=== PATIENT | female | born 1985 | race Hispanic/Latino ===

== ENCOUNTER 2018-06-08 05:16 | Emergency (ER) | payer OTHER ==
[~2018-06-08] VITALS: Ht 152.4 cm; Wt 79.4 kg
[~2018-06-08 05:16] MED LIST: BENTYL10 M1 PO; MOBIC15 M1 PO; NEXIUM20 M1 PO; ZOFRAN ODT4 M1 SL; [UNRECOGNIZED DRUG - OTHER]
--- NOTE | 2018-06-08 05:28 | ED GI/GU/ABDOMINAL COMPLAINT ---
See Addendum History of Present Illness General Chief Complaint: Abdominal Pain/Flank Pain Stated Complaint: SEVERE ABD PAIN 9WKS Source: patient Exam Limitations: no limitations Vital Signs & Intake/Output Vital Signs & Intake/Output Vital Signs Date Time Temp Pulse Resp B/P B/P Pulse O2 O2 Flow FiO2 Mean Ox Delivery Rate 06/08 0528 98.2 100 16 139/69 99 Room Air Allergies Coded Allergies: NO KNOWN ALLERGIES (07/12/17) Reconcile Medications Clomiphene Citrate 50 MG TABLET HEALTH SUPPLEMENT (Reported) Dicyclomine Hydrochloride (Bentyl) 10 MG CAPSULE 1 CAP PO TID PRN ABDOMINAL PAIN Esomeprazole Magnesium (Nexium) 20 MG CAPSULE.DR 1 CAP PO DAILY ACID REFLUX ( Reported) Meloxicam (Mobic) 15 MG TABLET 1 TAB PO DAILY PRN PAIN Ondansetron (Zofran Odt) 4 MG TAB.RAPDIS 1 TAB SL TID PRN NAUSEA Ondansetron (Zofran Odt) 4 MG TAB.RAPDIS 1 TAB SL TID PRN nausea Triage Note: REPORTS ABDOMINAL PAIN X 24 HRS WITH NAUSAEA AND VOMITING AND ALSO REPORTS LOOSE STOOLS. SHE IS CURRENTLY 9 WEEKS . Triage Nurses Notes Reviewed? yes ? y Is pt currently ? No Onset: Gradual Duration: day(s): Timing: recent history Quality/Severity: burning, cramping Location: epigastric Radiation: no radiation Activities at Onset: none Modifying Factors: Worsens With: palpation. Associated Symptoms: abdominal pain, nausea/vomiting HPI: 33 yo woman 9 weeks gestation, with IUP per her report, with regular OB follow up, presents with 1-2 day history of nausea and vomiting with mid epigastric burning discomfort. She notes that she has only felt intermittent nausea during her , "but this time it feels like a bug... it started last night." She notes normal stools, no fever, chills, dysuria. She has no vaginal discharge or bleeding. She is otherwise well. Past History Travel History Traveled to [place] past 21 day No Medical History Any Pertinent Medical History? see below for history Gastrointestinal: GERD Surgical History Surgical History: non-contributory Psychosocial History What is your primary language Frisian Tobacco Use: Never used Family History Hx Contributory? No Review of Systems Review of Systems Constitutional: Reports: no symptoms. EENTM: Reports: no symptoms. Respiratory: Reports: no symptoms. Cardiovascular: Reports: no symptoms. GI: Reports: no symptoms. Genitourinary: Reports: no symptoms. Musculoskeletal: Reports: no symptoms. Skin: Reports: no symptoms. Neurological/Psychological: Reports: no symptoms. Hematologic/Endocrine: Reports: no symptoms. Immunologic/Allergic: Reports: no symptoms. All Other Systems: Reviewed and Negative Physical Exam Physical Exam General Appearance: well developed/nourished, mild distress Head: atraumatic, normal appearance Eyes: Bilateral: normal appearance. Ears, Nose, Throat, Mouth: hearing grossly normal, moist mucous membrane Neck: normal inspection, supple, full range of motion Respiratory: normal breath sounds, chest non-tender, no respiratory distress, quiet respiration, lungs clear Cardiovascular: regular rate/rhythm Gastrointestinal: normal bowel sounds, soft, mild mid epigastric tenderness to palpation, no rebound. no guarding. Back: normal inspection Extremities: normal range of motion Neurologic/Psych: no motor/sensory deficits, awake, alert, oriented x 3 Skin: intact, normal color, warm/dry Comments: bedside u/s by ED MD... + heart movement, approx 150 bpm, Core Measures ACS in differential dx? No Sepsis Present: No Sepsis Focused Exam Completed? No Progress Differential Diagnosis: hyperemesis gravidarum vs viral gastro vs other. Plan of Care: Orders Procedure Date/time Status Add-on Test (ER Only) 06/08 06 Active HUMAN BETA HCG TITRE 06/08 0535 Complete URINALYSIS 06/08 05 Active LIPASE 06/08 05 Complete HUMAN BETA HCG SCREEN 06/08 05 Complete COMPREHENSIVE METABOLIC PANEL 06/08 05 Complete CBC WITHOUT DIFFERENTIAL 06/08 05 Complete AMYLASE 06/08 0520 Complete Laboratory Tests 06/08/18 0700: Urine Color Pending, Urine Clarity Pending, Urine pH Pending, Ur Specific [place] Pending, Urine Protein Pending, Urine Ketones Pending, Urine Nitrite Pending, Urine Bilirubin Pending, Urine Urobilinogen Pending, Ur Leukocyte Esterase Pending, Ur Microscopic Pending, Urine Hemoglobin Pending, Urine Glucose Pending 06/08/18 0535: Anion Gap 12, Estimated GFR > 60, BUN/Creatinine Ratio 12.0, Glucose 121 H, Calcium 9.3, Total Bilirubin 0.6, AST 20, ALT 38, Alkaline Phosphatase 66, Total Protein 6.8, Albumin 3.8, Globulin 3.0, Albumin/Globulin Ratio 1.3, Amylase 67, Lipase 77, Beta HCG, Quant 639111.0, Total Beta HCG POSITIVE, CBC w Diff NO MAN DIFF REQ, RBC 4.55, MCV 82.4, MCH 27.2, MCHC 32.9 L, RDW 13.7, MPV 9.1, Gran % 91.4 H, Lymphocytes % 5.7 L, Monocytes % 2.3, Eosinophils % 0.1, Basophils % 0.5, Absolute Granulocytes 10.8 H, Absolute Lymphocytes 0.7 L, Absolute Monocytes 0.3, Absolute Eosinophils 0, Absolute Basophils 0.1 Initial ED EKG: none Departure Departure Disposition: HOME OR SELF CARE Condition: Stable Clinical Impression Primary Impression: Abdominal pain Secondary Impressions: Nausea and vomiting, Referrals: Edmar Laorse MD (PCP/Family) Departure Forms: Customer Survey General Discharge Information Prescriptions: Current Visit Scripts Ondansetron (Zofran Odt) 1 TAB SL TID PRN nausea #10 TAB Comments 06/08/18, 7:15am... pt feeling better... labs benign... await u/a... pt signed out to dr. craven pending urinarlysis... rx for zofran sent to pharmacy. Ondansetron (Zofran Odt) 1 TAB SL TID PRN nausea #10 TAB
[2018-06-08 05:45] LABS: ABSOLUTE BASOPHIL COUNT 0.1 /CUMM (0.0-0.2); ABSOLUTE EOSINOPHIL COUNT 0 /CUMM (0.0-0.7); ABSOLUTE GRANULOCYTE CT 10.8 /CUMM (1.4-6.5); ABSOLUTE LYMPH COUNT 0.7 /CUMM (1.2-3.4); ABSOLUTE MONOCYTE COUNT 0.3 /CUMM (0.10-0.60); BASOPHIL % 0.5 % (0.0-2.0); EOSINOPHIL % 0.1 % (0-5); HEMATOCRIT 37.5 % (37-47); MEAN CORPUSCULAR HGB 27.2 PG (27.0-31.0); MEAN CORPUSCULAR HGB CONC 32.9 G/DL (33.0-37.0); MEAN CORPUSCULAR VOLUME 82.4 FL (81.0-99.0); MEAN PLATELET VOLUME 9.1 FL (7.4-10.4); PLATELET COUNT 302 /CUMM (130-400); RBC DISTRIBUTION WIDTH 13.7 % (11.5-14.5); RED BLOOD CELL CT 4.55 /CUMM (4.20-5.40); WHITE BLOOD CELL COUNT 11.8 /CUMM (4.8-10.8)
[2018-06-08 06:02] LABS: GRANULOCYTE % 91.4 % (42.2-75.2)
[2018-06-08] MEDS ORDERED: ZOFRAN ODT4 M1 SL (06:06)
[2018-06-08 07:52] VITALS: BP 120/59
== END 2018-06-08 07:56 ==
LOC: ERH 05:16
PROVIDERS: Pediatrics
DX: O21.9 Vomiting of pregnancy, unspecified (principal); R10.13 Epigastric pain; Z3A.09 9 weeks gestation of pregnancy
CPT/HCPCS: 81001; 96374; 96375; J0131; J2405

== ENCOUNTER 2018-08-08 19:16 | Emergency (ER) | payer OTHER ==
--- NOTE | 2018-08-08 20:12 | ULTRASOUND REPORT ---
EXAMINATION: ULTRASOUND PELVIC, obstetrical ultrasound limited CLINICAL INFORMATION: Dizziness. Nausea. Vomiting. Abdominal pain. . COMPARISON: None. TECHNIQUE: Transabdominal ultrasound. Spectral Doppler and color Doppler exam was utilized. (Spectral Doppler used to assess cardiac heart rate) LMP: 04/04/2018. Gestational age 18 weeks 0 days. KEM 01/09/2018 FINDINGS: UTERUS: Single intrauterine gestation. cardiac heart rate is 145 bpm. There is motion present. lie is transverse and vertex. The placenta is posterior. biometrics: 1. Biparietal diameter. 3.95 cm. 18 weeks 1 day. 2. Occipital frontal diameter. 4.78 cm. 17 weeks 4 days. 3. Head circumference. 14.5 cm. 17 weeks 5 days. 4. Abdominal circumference. 12.69 cm. 18 weeks 2 days. 5. Femur length. 2.64 cm. 18 weeks 1 day. These measurements give an estimated gestational age by this study of 18 weeks 1 day. KEM 01/08/2019. Estimated weight 224 g +/- 33 g. This is 52nd percentile for dating by LMP. IMPRESSION: Single intrauterine gestation with a gestational age by ultrasound of 18 weeks 1 day. KEM 01/08/2019.
[2018-08-08 21:42] LABS: ABSOLUTE BASOPHIL COUNT 0 /CUMM (0.0-0.2); ABSOLUTE EOSINOPHIL COUNT 0 /CUMM (0.0-0.7); ABSOLUTE GRANULOCYTE CT 10.2 /CUMM (1.4-6.5); ABSOLUTE LYMPH COUNT 1.2 /CUMM (1.2-3.4); ABSOLUTE MONOCYTE COUNT 0.6 /CUMM (0.10-0.60); BASOPHIL % 0.4 % (0.0-2.0); EOSINOPHIL % 0.3 % (0-5); HEMATOCRIT 36.7 % (37-47); MEAN CORPUSCULAR HGB 27.3 PG (27.0-31.0); MEAN CORPUSCULAR VOLUME 82.8 FL (81.0-99.0); MEAN PLATELET VOLUME 8.5 FL (7.4-10.4); PLATELET COUNT 281 /CUMM (130-400); RBC DISTRIBUTION WIDTH 14.6 % (11.5-14.5); RED BLOOD CELL CT 4.43 /CUMM (4.20-5.40)
[2018-08-08 21:54] VITALS: BP 119/78
--- NOTE | 2018-08-08 22:44 | ED GI/GU/ABDOMINAL COMPLAINT ---
See Addendum History of Present Illness General Chief Complaint: Abdominal Pain/Flank Pain Stated Complaint: 17WKS PREG, ABD. PAIN,NAUSEA,DIZZINESS,VOMITING Source: patient Exam Limitations: no limitations Vital Signs & Intake/Output Vital Signs & Intake/Output Vital Signs Date Time Temp Pulse Resp B/P B/P Pulse O2 O2 Flow FiO2 Mean Ox Delivery Rate 08/08 1922 97.9 96 18 123/76 99 Room Air Allergies Coded Allergies: NO KNOWN ALLERGIES (07/12/17) Triage Note: PT 17WKS TO TRIAGE C/O GENERALIZED ABD PAIN, DIZZINESS, +N/V. PT 1ST , DENIES PREVIOUS COMPLICATIONS, MAYTE GONZALES. DUE DATE Dec. Triage Nurses Notes Reviewed? yes LMP (ages 10-50): unknown ? y Is pt currently ? No Onset: Abrupt Duration: day(s): (2), constant, continues in ED, getting worse Timing: recent history Quality/Severity: cramping Severity Numbers: 8 Location: generalized abdomen Radiation: no radiation Activities at Onset: none Prior Abdominal Problems: similar symptoms Sexually Active: Yes Last Time You Were Sexual: less than 2 months ago Use of Protection: No HPI: 33-year-old female currently about 17 weeks presents for evaluation of nausea vomiting abdominal pain and dizziness. Patient reports symptoms started about 2 days ago and been getting worse. She reports diffuse abdominal cramping not worse in one particular area. She reports multiple episodes of nausea and vomiting she is not tolerating fluids. She denies any vaginal discharge or bleeding. She reports she had a similar episode several weeks ago and does not know the etiology. She has been following up with her OB /MORTGAGE PROCESSOR doctor Dr. Ulrich and her so far has been uncomplicated. She denies any chest pain shortness of breath urinary symptoms fever. She does report some low back pain. She has been taking Tylenol and omeprazole at home without any improvement. (George FLORES,Ozzie) Reconcile Medications Clomiphene Citrate 50 MG TABLET HEALTH SUPPLEMENT (Reported) Dicyclomine Hydrochloride (Bentyl) 10 MG CAPSULE 1 CAP PO TID PRN ABDOMINAL PAIN Esomeprazole Magnesium (Nexium) 20 MG CAPSULE.DR 1 CAP PO DAILY ACID REFLUX ( Reported) Famotidine 40 MG TABLET 1 TAB PO BID Acid reflux Meloxicam (Mobic) 15 MG TABLET 1 TAB PO DAILY PRN PAIN Nitrofurantoin Monohyd/M-Cryst (Macrobid 100 MG Capsule) 100 MG CAPSULE 1 CAP PO BID uti with food Ondansetron (Zofran Odt) 4 MG TAB.RAPDIS 1 TAB SL TID PRN NAUSEA Ondansetron (Zofran Odt) 4 MG TAB.RAPDIS 1 TAB SL TID PRN nausea Ondansetron (Zofran Odt) 4 MG TAB.RAPDIS 1 TAB SL TID PRN nausea Ondansetron (Zofran Odt) 4 MG TAB.RAPDIS 1 TAB SL TID PRN nausea Ranitidine HCl (Zantac) 300 MG TABLET 1 TAB PO QPM STOMACH ACID Sucralfate (Carafate) 1 GRAM/10 ML ORAL.SUSP 10 ML PO 4 TIMES/DAY Abd pain 1 hour before food and bedtime Tylenol With Codeine (Acetaminop-Codeine 120-12 MG/5) 120 MG-12 MG/5 ML (5 ML) SOLUTION 10 ML PO Q6P PAIN (Tucker BARNETT,Devon) Past History Travel History Traveled to [place] past 21 day No Medical History Any Pertinent Medical History? see below for history Neurological: NONE EENT: NONE Cardiovascular: NONE Respiratory: NONE Gastrointestinal: GERD Hepatic: NONE Renal: NONE Musculoskeletal: NONE Psychiatric: NONE Endocrine: NONE Surgical History Surgical History: non-contributory Psychosocial History What is your primary language South African Tobacco Use: Current Not Daily Daily Tobacco Use Amount/Type: =< 4 Cigarettes daily ETOH Use: denies use Family History Hx Contributory? No (Ozzie Peres) Review of Systems Review of Systems Constitutional: Reports: no symptoms. EENTM: Reports: no symptoms. Respiratory: Reports: no symptoms. Cardiovascular: Reports: no symptoms. GI: Reports: see HPI, abdominal pain, nausea, vomiting. Genitourinary: Reports: no symptoms. Musculoskeletal: Reports: no symptoms. Skin: Reports: no symptoms. Neurological/Psychological: Reports: see HPI (dizzy). Hematologic/Endocrine: Reports: no symptoms. Immunologic/Allergic: Reports: no symptoms. All Other Systems: Reviewed and Negative (Ozzie Peres) Physical Exam Physical Exam General Appearance: well developed/nourished, no apparent distress, alert, awake Head: atraumatic, normal appearance Eyes: Bilateral: normal appearance, PERRL, EOMI. Ears, Nose, Throat, Mouth: hearing grossly normal, moist mucous membrane Neck: normal inspection, supple, full range of motion Respiratory: normal breath sounds, chest non-tender, no respiratory distress, lungs clear Cardiovascular: regular rate/rhythm, normal peripheral pulses Peripheral Pulses: 2+ radial (R), 2+ radial (L) Gastrointestinal: normal bowel sounds, soft, no organomegaly, tenderness ( diffuse ), gravid uterus Back: normal inspection, normal range of motion, no vertebral tenderness, no cvat, lumbar paraspinous muscles are tender to palpation bilaterally no midline pain to step offs or deformities Extremities: normal range of motion Neurologic/Psych: no motor/sensory deficits, awake, alert, oriented x 3, normal gait, normal mood/affect Skin: intact, normal color, warm/dry Core Measures ACS in differential dx? No Sepsis Present: No Sepsis Focused Exam Completed? No (George FLORES,Ozzie) Progress Differential Diagnosis: peptic ulcer, PUD/GERD, gastritis, gastroenteritis, cholcysitits, pancreatitis Plan of Care: Orders Procedure Date/time Status URINALYSIS 08/08 1922 Active LIPASE 08/08 1922 Complete HUMAN BETA HCG TITRE 08/08 1922 Complete COMPREHENSIVE METABOLIC PANEL 08/08 1922 Complete CBC WITHOUT DIFFERENTIAL 08/08 1922 Complete Current Medications Sig/Andrea Start time Last Medication Dose Stop Time Status Admin Famotidine 20 MG ONCE ONE 08/085 UNVr (Pepcid) 08/08 231 Sodium Chloride 1,000 ML BOLUS ONE 08/08 2230 AC 08/08 (Normal Saline 0.9%) 08/08 2329 2315 Laboratory Tests 08/08/18 2305: Urine Color Pending, Urine Clarity Pending, Urine pH Pending, Ur Specific [place] Pending, Urine Protein Pending, Urine Ketones Pending, Urine Nitrite Pending, Urine Bilirubin Pending, Urine Urobilinogen Pending, Ur Leukocyte Esterase Pending, Ur Microscopic SEDIMENT EXAMINED, Urine RBC Pending, Urine Hemoglobin Pending, Urine Glucose Pending 08/08/18 2135: Anion Gap 9, Estimated GFR > 60, BUN/Creatinine Ratio 14.0, Glucose 103 H, Calcium 9.6, Total Bilirubin 0.4, AST 24, ALT 41, Alkaline Phosphatase 64, Total Protein 7.0, Albumin 3.9, Globulin 3.1, Albumin/Globulin Ratio 1.3, Lipase 88, Beta HCG, Quant 29577.0, CBC w Diff NO MAN DIFF REQ, RBC 4.43, MCV 82.8, MCH 27.3, MCHC 33.0, RDW 14.6 H, MPV 8.5, Gran % 85.0 H, Lymphocytes % 9.6 L, Monocytes % 4.7, Eosinophils % 0.3, Basophils % 0.4, Absolute Granulocytes 10.2 H, Absolute Lymphocytes 1.2, Absolute Monocytes 0.6, Absolute Eosinophils 0, Absolute Basophils 0 Patient is here for evaluation of abdominal pain nausea vomiting and dizziness. Symptoms started about 2 days ago to been persistent. She was seen here several weeks ago with similar symptoms of unknown etiology. She denies any vaginal discharge or bleeding. She has been following up with her RIGGING ENGINEER doctor. On exam her abdomen is diffusely tender without rebound guarding. Abdomen is soft. viability ultrasound is within normal limits. Blood work shows a slightly elevated white count of 12,000 otherwise labs unremarkable. Patient was medicated with IV Tylenol IV Zofran Pepcid and fluids. She will be reassessed. Patient was signed to Dr. Ceballos pending re-eval. Diagnostic Imaging: Viewed by Me: Ultrasound. Discussed w/RAD: Ultrasound. Radiology Impression: PATIENT: KEN CARRASCO PRESENT AGE: 33 PATIENT ACCOUNT NO: [id number] : 87 LOCATION: [facility] ORDERING PHYSICIAN: Ozzie FLORES SERVICE DATE: 08/08/18 EXAM TYPE: US - US- VIABILITY EXAMINATION: ULTRASOUND PELVIC, obstetrical ultrasound limited CLINICAL INFORMATION: Dizziness. Nausea. Vomiting. Abdominal pain. . COMPARISON: None. TECHNIQUE: Transabdominal ultrasound. Spectral Doppler and color Doppler exam was utilized. (Spectral Doppler used to assess cardiac heart rate) LMP: 04/04/2018. Gestational age 18 weeks 0 days. KEM 01/09/2018 FINDINGS: UTERUS: Single intrauterine gestation. cardiac heart rate is 145 bpm. There is motion present. lie is transverse and vertex. The placenta is posterior. biometrics: 1. Biparietal diameter. 3.95 cm. 18 weeks 1 day. 2. Occipital frontal diameter. 4.78 cm. 17 weeks 4 days. 3. Head circumference. 14.5 cm. 17 weeks 5 days. 4. Abdominal circumference. 12.69 cm. 18 weeks 2 days. 5. Femur length. 2.64 cm. 18 weeks 1 day. These measurements give an estimated gestational age by this study of 18 weeks 1 day. KEM 2018. Estimated weight 224 g +/- 33 g. This is 52nd percentile for dating by LMP. IMPRESSION: Single intrauterine gestation with a gestational age by ultrasound of 18 weeks 1 day. KEM 01/08/2019. DICTATED BY: Luke Aggarwal MD DATE/ TIME DICTATED:08/08/182003 TAILINGS WORKER:TOM DATE/TIME TRANSCRIBED: 08/08/182003 CONFIDENTIAL, DO NOT COPY WITHOUT APPROPRIATE AUTHORIZATION. < Electronically signed in Other Vendor System> SIGNED BY: Luke Aggarwal MD 2011 Initial ED EKG: none Hand-Off Endorsed To: Devon Ceballos MD Endorsed Time: 1658 Pending: other (ua, reval, po chalenge) (Ozzie Peres) Departure Departure Disposition: STILL A PATIENT Condition: Stable Clinical Impression Primary Impression: Abdominal pain during Qualifiers: Trimester: second trimester Qualified Codes: O26.892 - Other specified related conditions, second trimester; R10.9 - Unspecified abdominal pain Referrals: Edmar Larose MD (PCP/Family) Additional Instructions: Zofran as needed for nausea Tylenol for pain. Follow-up with your RIGGING ENGINEER doctor. Monitor your symptoms return with any concerns Departure Forms: Customer Survey General Discharge Information (Ozzie Peres) Departure Prescriptions: Current Visit Scripts Ondansetron (Zofran Odt) 1 TAB SL TID PRN nausea #10 TAB Nitrofurantoin Monohyd/M-Cryst (Macrobid 100 MG Capsule) 1 CAP PO BID #14 CAP with food PA/VENEER REDRIER Co-Sign Statement Statement: ED Attending supervision documentation- x I saw and evaluated the patient. I have also reviewed all the pertinent lab results and diagnostic results. I agree with the findings and the plan of care as documented in the PA's/VENEER REDRIER's documentation. Ms Carrasco was seen and examined. [] I have reviewed the ED Record and agree with the PA's/VENEER REDRIER's documentation. [] Additions or exceptions (if any) to the PAs/VENEER REDRIER's note and plan are summarized below: [] (Tucker BARNETT,Devon)
[2018-08-08] MEDS ORDERED: ZOFRAN ODT4 M1 SL (23:18)
[2018-08-08] MEDS ORDERED: MACROBID 100 M100 MG PO (23:34)
[2018-08-09] MEDS ORDERED: FAMOTIDINE40 M1 PO (04:39)
[2018-08-09] MEDS ORDERED: CARAFATE1 GM/10 M1 PO (04:39)
[2018-08-09] MEDS ORDERED: ACETAMINOP-CODEI5 ML PO (09:41)
[2018-08-09] MEDS ORDERED: ZANTAC300 MG PO (09:41)
== END 2018-08-09 00:19 ==
LOC: ERH 19:16
PROVIDERS: Physician Assistant Medical
DX: O26.92 Pregnancy related conditions, unspecified, second trimester (principal); R10.84 Generalized abdominal pain; Z3A.18 18 weeks gestation of pregnancy; K21.9 Gastro-esophageal reflux disease without esophagitis
CPT/HCPCS: 81001; 87086; 96374; 96375; J0131; J2405